=== PATIENT | female | born 1950 | race Caucasian/White ===

== ENCOUNTER 2017-07-18 13:11 | Emergency (ER) | payer OTHER ==
[~2017-07-18 13:11] MED LIST: ACTOPLUS MET 151 TA2 PO; ASPIRIN81 M1 PO; ASPIRIN81 M2 PO; BLOOD PRESSURE; CARDIZEM CD180 M2 PO; CARTIA XT180 MG PO; COREG3.125 MG PO; COUMADIN5 MG PO; CRESTOR10 MG PO; DIOVAN HCT 3201 EACH PO; DIOVAN80 M1 PO; FISH OIL 1,2001 CAP PO; GLUCOPHAGE500 M1 PO; LEVAQUIN PO; LIPITOR20 MG PO; LOPRESSOR PO; LOVENOX120 MG/0.8 INJ; MOBIC PO; NAPROXEN PO; NITROSTAT0.4 MG SL; TOPROL XL PO; TYLENOL325 M1 PO; ULTRAM PO; ZOCOR PO; ZOCOR80 MG PO
== END 2017-07-18 14:25 | disposition home or self-care (01) ==
LOC: SED 13:11
DX: L23.7 Allergic contact dermatitis due to plants, except food (principal); E11.9 Type 2 diabetes mellitus without complications; I10 Essential (primary) hypertension; Z90.49 Acquired absence of other specified parts of digestive tract; Z90.710 Acquired absence of both cervix and uterus; Z88.2 Allergy status to sulfonamides; Z88.5 Allergy status to narcotic agent
CPT/HCPCS: 99282